=== PATIENT | female | born 2000 | race Caucasian/White ===

== ENCOUNTER 2019-04-26 13:53 | Outpatient (CLI) | payer MEDICAID ==
[~2019-04-26] VITALS: Ht 170.2 cm; Wt 95.9 kg
--- NOTE | 2019-04-26 13:30 | NUR ---
LAYTON DOBSON presented to unit from Dr. Christensen's office, accompanied by Mom, with c/o NAUSEA,VOMITTING. LAYTON DOBSON weighed, gowned, voided, and to bed. VS taken. LAYTON DOBSON oriented to bed controls, call light, TV, heat, and A/C controls.
[2019-04-26 13:45] VITALS: BP 126/86
--- NOTE | 2019-04-26 13:58 | NUR ---
20g Saline lock inserted in patient's left hand x 1 attempt. Unable to draw labs at this time, will notify lab to draw.
--- OUTSIDE RECORDS SUMMARY | 2019-04-26 14:16 | XMS REPORT ---
Author Author JAIME RUTHERFORD Organization [facility] [address] [address] [facility] Address [address] [place] [address] Care Team Providers Care Electric Truck Operator Name Role Phone JAIME RUTHERFORD Unavailable PROBLEMS Unknown Problems ALLERGIES No Information ENCOUNTERS Encounter Location Date Diagnosis [facility] [address] [facility] [id number] [id number] Apr, [id number] [id number] Apr, Rash R21 and Chigger bites B88.0 IMMUNIZATIONS No Known Immunizations SOCIAL HISTORY Never Assessed REASON FOR VISIT PE PLAN OF CARE VITAL SIGNS MEDICATIONS Unknown Medications RESULTS No Results PROCEDURES No Known procedures INSTRUCTIONS MEDICATIONS ADMINISTERED No Known Medications MEDICAL (GENERAL) HISTORY Type Description Date Surgical History tonsillectomy and adenoidectomy Surgical History BMT
--- OUTSIDE RECORDS SUMMARY | 2019-04-26 14:16 | XMS REPORT ---
Author Author JAIME RUTHERFORD Organization [facility] Address [address] [place] [address] Care Team Providers Care Lock And Dam Repairer Name Role Phone JAIME RUTHERFORD Unavailable PROBLEMS Unknown Problems ALLERGIES No Known Allergies ENCOUNTERS Encounter Location Date Diagnosis [facility] [address] [facility] [id number] [id number] Apr, [facility] [address] [facility] [id number] [id number] Apr, Rash R21 and Chigger bites B88.0 IMMUNIZATIONS No Known Immunizations SOCIAL HISTORY Never Assessed REASON FOR VISIT Rash starting 2 days ago Sera YATES PLAN OF CARE Activity Details Follow Up if not improving in clinic or with PCP Reason: VITAL SIGNS Height 67 in 2017-05-21 Weight 211.2 lbs 2017-05-21 Temperature 98.6 degrees Fahrenheit 2017-05-21 Heart Rate 82 bpm 2017-05-21 Respiratory Rate 22 2017-05-21 BMI 33.07 kg/m2 2017-05-21 Blood pressure systolic 120 mmHg 2017-05-21 Blood pressure diastolic 68 mmHg 2017-05-21 MEDICATIONS Unknown Medications RESULTS No Results PROCEDURES No Known procedures INSTRUCTIONS MEDICATIONS ADMINISTERED No Known Medications MEDICAL (GENERAL) HISTORY Type Description Date Surgical History tonsillectomy and adenoidectomy Surgical History BMT
--- OUTSIDE RECORDS SUMMARY | 2019-04-26 14:16 | XMS REPORT | Continuity of Care Document ---
Author Organization Unknown Address Unknown Allergies There is no data. Medications There is no data. Problems There is no data. Procedures There is no data. Results Test Result Range CULTURE, URINE - 03/03/19 12:09 CULTURE, URINE, ROUTINE SEE NOTE NRG CULTURE, GENITAL - 03/03/19 12:09 CULTURE, GENITAL SEE NOTE NRG GC/CHLAMYDIA (SWAB OR URINE)-RAPID - 03/03/19 19:01 CHLAMYDIA TRACHOMATIS RNA, TMA NOT DETECTED NOT DETECTED NEISSERIA GONORRHOEAE RNA, TMA NOT DETECTED NOT DETECTED COMMENT NRG HCG, QUANTITATIVE - 03/16/19 14:50 [place] [address] mIU/mL NRG HCG, QUANTITATIVE - 03/17/19 11:56 [place], [place] [address] mIU/mL NRG Encounters ACCT No. Visit Date/Time Discharge Status Pt. Type Provider Facility Loc./Unit Complaint [id number] 03/31/2019 10:00:00 03/31/2019 23:59:59 [facility] [place] [id number] 03/17/2019 09:00:00 Document Registration [id number] 03/16/2019 14:00:00 Document Registration [id number] 03/03/2019 10:40:00 Document Registration
--- NOTE | 2019-04-26 14:43 | NUR ---
LAB HERE TO DRAW BLOOD. CALLED PHARMACY ABOUT IV FLUIDS. CALLED [facility] ABOUT ULTRASOUND.
[2019-04-26] MEDS ORDERED: ONDANSETRON 4 MG/2 ML (SDV) Z0FRAN IVP PRN (14:45)
[2019-04-26 15:04] LABS: BASOPHILS % (AUTO) 0 % (0-10); EOSINOPHILS % (AUTO) 0 % (0-10); HEMATOCRIT 39 % (35-52); HEMOGLOBIN 14.1 G/DL (11.5-16.0); LYMPHOCYTES # (AUTO) 1.7 X 10^3 (1.0-4.0); LYMPHOCYTES % (AUTO) 19 % (12-44); MEAN CORPUSCULAR HEMOGLOBIN 30 PG (25-34); MEAN CORPUSCULAR HGB CONC 37 G/DL (32-36); MEAN CORPUSCULAR VOLUME 82 FL (80-99); MEAN PLATELET VOLUME 11.3 FL (7.4-10.4); MONOCYTES # (AUTO) 0.7 X 10^3 (0.0-1.0); MONOCYTES % (AUTO) 8 % (0-12); NEUTROPHILS # (AUTO) 6.6 X 10^3 (1.8-7.8); NEUTROPHILS % (AUTO) 73 % (42-75); PLATELET COUNT 182 10^3/uL (130-400)
[2019-04-26] MEDS: NS W/KCL 20 MEQ/L 1,000 ML IV SCH ×2 (15:13→22:24)
[2019-04-26] MEDS: FAMOTIDINE 20MG/2ML IV (PEPCID) IVP SCH (15:13)
--- NOTE | 2019-04-26 15:13 | NUR ---
1000 CC NS WITH 20 KCL INITIATED AFTER RECEIVING FROM PHARMACY TRA 150CC/HR/PUMP. SITE CLEAR. PEPCID 20 MG IVPB.
--- NOTE | 2019-04-26 15:20 | NUR ---
[facility] HERE TO DO HEPATIC ULTRASOUND.
[2019-04-26 15:24] LABS: ALANINE AMINOTRANSFERASE 130 U/L (0-55); ALBUMIN 3.8 GM/DL (3.2-4.5); ALKALINE PHOSPHATASE 85 U/L (40-136); BILIRUBIN,TOTAL 1.7 MG/DL (0.1-1.0); BUN/CREATININE RATIO 10; CALCIUM 9.9 MG/DL (8.5-10.1); CARBON DIOXIDE 19 MMOL/L (21-32); CHLORIDE 103 MMOL/L (98-107); CREATININE SERUM 0.61 MG/DL (0.60-1.30); GFR ESTIMATED > 60; GLUCOSE 89 MG/DL (70-105); POTASSIUM 3.1 MMOL/L (3.6-5.0); SODIUM 133 MMOL/L (135-145); TOTAL PROTEIN 7.2 GM/DL (6.4-8.2)
[2019-04-26] MEDS: METOCLOPRAMIDE INJ 10 MG/2 ML (REGLAN) IVP PRN (16:12)
--- NOTE | 2019-04-26 16:12 | NUR ---
REGLAN [address] BROWN.
--- NOTE | 2019-04-26 16:15 | Diagnostic Imaging Report ---
PROCEDURE: US Hepatic (Liver). TECHNIQUE: Multiple real-time grayscale images were obtained over the right upper quadrant in various projections. INDICATION: Elevated bilirubin. Patient is 11 weeks . FINDINGS: The liver is normal in size at 14.8 cm. No discrete liver mass is identified. Portal vein is patent and shows normal direction of flow. Gallbladder does contain a large amount of sludge. No wall thickening or biliary ductal dilatation is seen. The pancreas is obscured by bowel gas. Right kidney is unremarkable. There is no ascites. IMPRESSION: Sludge-filled gallbladder. No other significant abnormality is seen. Dictated by: Dictated on workstation # [id number]
--- NOTE | 2019-04-26 17:00 | NUR ---
SLEEPING QUIETLY. NO APPARENT DISTRESS.
[2019-04-26 17:30] VITALS: BP 126/81
--- NOTE | 2019-04-26 17:30 | NUR ---
VSS. AWAKENED WHEN ENTERED ROOM. NO VOID SINCE FIRST ARRIVED. ORDERING FOOD. STATES FEELS BETTER.
--- NOTE | 2019-04-26 18:15 | NUR ---
TOOK APPROX. HALF OF CHICKEN NOODLE SOUP. SIPPING ON ICE WATER.
--- NOTE | 2019-04-26 18:39 | NUR ---
DR. GUEVARA NOTIFIED OF LABS AND ULTRASOUND RESULTS. NO NEW ORDERS.
--- NOTE | 2019-04-26 18:45 | NUR ---
GETTING READY TO ORDER MORE FOOD. DENIES VOIDING.
[2019-04-27 00:56] VITALS: BP 120/74
[2019-04-27] MEDS: NS W/KCL 20 MEQ/L 1,000 ML IV SCH ×2 (05:00→11:35)
[2019-04-27 06:47] LABS: BUN/CREATININE RATIO 7; CARBON DIOXIDE 20 MMOL/L (21-32); CHLORIDE 105 MMOL/L (98-107); CREATININE SERUM 0.58 MG/DL (0.60-1.30); POTASSIUM 3.3 MMOL/L (3.6-5.0); SODIUM 135 MMOL/L (135-145)
[2019-04-27 06:48] LABS: ALANINE AMINOTRANSFERASE 113 U/L (0-55); ALBUMIN 3.4 GM/DL (3.2-4.5); ALKALINE PHOSPHATASE 81 U/L (40-136); BILIRUBIN,TOTAL 1.5 MG/DL (0.1-1.0); CALCIUM 8.7 MG/DL (8.5-10.1); GFR ESTIMATED > 60; GLUCOSE 77 MG/DL (70-105)
--- NOTE | 2019-04-27 08:00 | NUR ---
Dr. Cox here to see pt. No new orders rec'd at this time. planning to consult general surgery regarding gall bladder.
[2019-04-27] MEDS: METOCLOPRAMIDE INJ 10 MG/2 ML (REGLAN) IVP PRN (08:28)
--- NOTE | 2019-04-27 08:28 | NUR ---
Pt c/o nausea, reglan given per order. Pt planning to order breakfast at this time.
[2019-04-27 09:15] VITALS: BP 139/89
--- NOTE | 2019-04-27 09:15 | NUR ---
Dr. Akins made aware of consultation
--- NOTE | 2019-04-27 11:00 | NUR ---
REPORT FROM LEXX YATES.
[2019-04-27] MEDS: FAMOTIDINE 20MG/2ML IV (PEPCID) IVP SCH (11:42)
[2019-04-27 12:00] VITALS: BP 132/72
--- NOTE | 2019-04-27 12:00 | NUR ---
VSS. NO VOMITING. PT HAD C/O TENDERNESS WITH PALPATION OF RIGHT UPPER QUADRANT. PT HAS BEEN DENYING PAIN SINCE ADMISSION.
--- NOTE | 2019-04-27 12:12 | NUR ---
DR. SNOWDEN CALLED TO DISCUSS PT.
--- NOTE | 2019-04-27 14:08 | NUR ---
DR. SNOWDEN HERE TO CONSULT ON PT.
--- NOTE | 2019-04-27 15:00 | NUR ---
Dr. Cox called and updated on consult with Dr. Akins. Orders to D/C pt to home rec'd with follow up to see Dr. Christensen within the next week. Instruct pt on Low-Fat diet.
--- NOTE | 2019-04-27 15:19 | CONSULTATION REPORT ---
DATE OF SERVICE: 04/27/2019 ATTENDING PRIMARY CARE PHYSICIAN: Lori Christensen MD. HISTORY OF PRESENT ILLNESS: The patient is a 19-year-old female, G1, P0 at 11 weeks and 5 days. She was admitted due to persistent nausea and vomiting as well as dehydration. Since being admitted and started on IV fluids as well as Zofran, she has felt much better and able to tolerate liquids as well as a low fat diet without any difficulty. Upon further evaluation, an ultrasound was performed, which did show that she does have biliary sludge consistent with a chronic calculous cholecystitis. Upon further questioning, she reports that she has had similar symptoms of pain in the right upper abdominal quadrant with abdominal bloating and distention with radiation towards the back even in the past few years after eating a large meal. She does not report any issues with heartburn, reflux or any peptic ulcer disease. PAST MEDICAL HISTORY: None. PAST SURGICAL HISTORY: Tonsillectomy, bilateral tympanostomy. ALLERGIES: No known drug allergies. MEDICATIONS: None. SOCIAL HISTORY: Negative smoke, negative alcohol. FAMILY HISTORY: Noncontributory. VITAL SIGNS: Temperature 97.9, blood pressure 132/72, pulse 75, respirations 18, pulse ox 100% on room air. REVIEW OF SYSTEMS: This is a well-nourished female, currently in no acute distress. She is not experiencing any shortness of breath or difficulty breathing. No chest pain, palpitations, diaphoresis. Intermittent episodes of nausea and vomiting, which has been occurring for the past few weeks; however, was more severe recently. Since being admitted, she has done better. She does not report any diarrhea or constipation as well as no red blood per rectum or any dark tarry stools. No fever, chills; however, states that she has lost some weight since finding out she was at approximately 5 weeks' gestation. PHYSICAL EXAMINATION: CHEST: Clear. Good breath sounds bilaterally. HEART: Regular, no murmurs. EXTREMITIES: No lower extremity edema, negative Homans sign. HEENT: No scleral icterus. NECK: No cervical lymphadenopathy. ABDOMEN: Soft, nondistended. There is mild discomfort in the right upper abdominal quadrant upon deep palpation. No peritoneal signs. SKIN: Warm, dry. LABORATORY DATA: WBC 9.0, hemoglobin 14.1, hematocrit 39, platelets 182, total bilirubin 1.5, AST 70, ALT 113. ASSESSMENT AND PLAN: A 19-year-old female G1, P0 at 11 weeks 5 days gestation. She has had nausea, vomiting as well as abdominal pain and an ultrasound, which did show biliary sludge. We feel that the majority of her symptoms are related to increased estrogen and bile stasis as well as underlying biliary sludge, which has worsened during her . The gallbladder etiology was explained to the patient. It was also explained to her that we would like to wait until the early to mid second trimester before proceeding with general anesthesia as well as laparoscopic cholecystectomy. However, at the same time, not wait too long when she has a more gravid uterus, which may impede visualization. She is in understanding of this and would like to proceed with an outpatient laparoscopic cholecystectomy. We will have her follow up in the office in the next 2 weeks and for now have her proceed with a very bland diet and low fat simultaneously. We will also have her take Zofran 4 mg ODT p.r.n. if she does become nauseous. At approximately 16 weeks' gestation, we will proceed with scheduling her for a laparoscopic cholecystectomy. Job ID: [id number] DocumentID: [id number] Dictated Date: 04/27/2019 15:03:15 Checker In Date: 04/27/2019 15:19:04 Dictated By: ALESSIA SNOWDEN MD [facility]
--- NOTE | 2019-04-27 15:19 | NUR ---
Dr. Akins's office called, follow up appt made.
--- NOTE | 2019-04-27 15:41 | NUR ---
Discharge instructions explained to pt with copy provided to pt along with zofran script. Encouraged pt to fill and take zofran as prescribed. Emphasis of instruction on low-fat diet given. Pt verbalizes understanding of instruction and signs to verify. Questions answered to pt satisfaction. No further needs or concerns voiced at this time. Pt ambulates self off unit accompanied by mother, to private vehicle, all personal belongings with pt. No s/s of distress noted.
--- NOTE | 2019-04-27 18:45 | History & Physical-OB ---
OB - Chief Complaint & HPI Date/Time Date of Admission: Date of Admission: Apr 26, 2019 at 14:12 Date seen by a Provider: Apr 27, 2019 Time Seen by a Provider: 08:00 Chief Complaint/History OB-Reason for Admission/Chief: nausea, vomiting, hypokalemia Hx : 1 Hx Para: 0 Expected Date of Delivery: Nov 11, 2019 Gestational Age in Weeks: 11 Gestational Age in Days: 4 Allergies and Home Medications Allergies Coded Allergies: No Known Drug Allergies (Unverified , 04/26/19) Home Medications No Active Prescriptions or Reported Meds Patient Home Medication List Home Medication List Reviewed: Yes OB - History Hx of Present Care: Yes Ultrasounds: No ultrasounds Obstetrical Complications: Hyperemesis Obstetrical History Hx : 1 Hx Para: 0 Hx Total # of Abortions (Spona: 0 Patient Past Medical History none Social History/Family History Recent Infectious Disease Expo: No OB - Admission Exam Physical Exam Vitals: Vital Signs 04/27/19 12:00 Temp 97.9 Pulse 75 Resp 18 B/P (MAP) 132/72 (92) Pulse Ox 100 O2 Delivery Room Air HEENT: NCAT Heart: Rhythm Normal Lungs: Clear Abdomen: Other (right upper quadrant tenderness) Extremities: Normal Reflexes: Normal Labs Laboratory Tests Test 04/27/19 06:20 Range/Units Sodium Level 135 135-145 MMOL/L Potassium Level 3.3 L 3.6-5.0 MMOL/L Chloride Level 105 98-107 MMOL/L Carbon Dioxide Level 20 L 21-32 MMOL/L Anion Gap 10 5-14 MMOL/L Blood Urea Nitrogen 4 L 7-18 MG/DL Creatinine 0.58 L 0.60-1.30 MG/DL Estimat Glomerular Filtration Rate > 60 BUN/Creatinine Ratio 7 Glucose Level 77 70-105 MG/DL Calcium Level 8.7 8.5-10.1 MG/DL Corrected Calcium 9.2 8.5-10.1 MG/DL Total Bilirubin 1.5 H 0.1-1.0 MG/DL Aspartate Amino Transf (AST/SGOT) 70 H 5-34 U/L Alanine Aminotransferase (ALT/SGPT) 113 H 0-55 U/L Alkaline Phosphatase 81 40-136 U/L Total Protein 6.0 L 6.4-8.2 GM/DL Albumin 3.4 3.2-4.5 GM/DL OB - Assessment/Plan/Diagnosis Assessment Assessment: observation Admission Dx Gallbladder sludge, nausea, vomiting Admission Status: Observation Plan Other Plan at 11 weeks 5 days with gallbladder sludge, vomiting, and hypokalemia with elevated liver enzymes. Will continue fluids and electrolyte replacement. Ultrasound shows gallbladder sludge with elevated liver enzymes. Will consult surgeon. Home later today if tolerating oral food. CANDICE YOUNG MD Apr 27, 2019 18:45
[2019-04-28 06:43] LABS: HEPATITIS C ANTIBODY C Non-Reactive (Non-Reactive)
== END 2019-04-27 15:41 | disposition home or self-care (01) ==
LOC: WSo 13:53 → LDRP 13:54 → WSo 14:11 → LDRP 14:12 → WS 04-27 14:47
PROVIDERS: ADMIT Family Medicine; ATTEND Family Medicine
DX: O21.1 Hyperemesis gravidarum with metabolic disturbance (principal); O99.611 Diseases of the digestive system complicating pregnancy, first trimester; K82.8 Other specified diseases of gallbladder; Z3A.11 11 weeks gestation of pregnancy
CPT/HCPCS: 36415; 76705; 80053; 80074; 84443; 85025; 96361; 96374; 96375; 96376; 99211; G0378

== ENCOUNTER 2019-05-18 09:40 | Outpatient (RCR) | payer MEDICAID ==
[2019-06-08] MEDS ORDERED: ONDA4TAB11 PO (09:45)
[2019-06-09] MEDS ORDERED: HYDR-3812 PO (12:46)
[2019-06-29] MEDS ORDERED: CALC500T7 PO (07:57)
[2019-06-29] MEDS ORDERED: NITR-65 PO (08:47)
[2019-08-10] MEDS ORDERED: RANI-613 PO (17:20)
== END 2019-08-16 | disposition home or self-care (01) ==
LOC: CARD 09:40
PROVIDERS: ATTEND Family Medicine
DX: R00.2 Palpitations (principal)
CPT/HCPCS: 93225; 93226

== ENCOUNTER 2019-06-08 10:35 | Outpatient (CLI) | payer MEDICAID ==
[~2019-06-08] VITALS: Ht 170.2 cm; Wt 97.7 kg
[~2019-06-08 10:35] MED LIST: ONDA4TAB11 PO
[2019-06-09] MEDS ORDERED: HYDR-3812 PO (12:46)
== END 2019-06-08 10:55 | disposition home or self-care (01) ==
LOC: PREOP 10:35
PROVIDERS: ATTEND Surgery
DX: Z01.818 Encounter for other preprocedural examination (principal)

== ENCOUNTER 2019-06-09 07:53 | Day surgery (SDC) | payer MEDICAID ==
[~2019-06-09] VITALS: Ht 170.2 cm; Wt 97.7 kg
[2019-06-09] VITALS (12 sets, daily range): BP systolic 107–132; BP diastolic 59–87
--- OUTSIDE RECORDS SUMMARY | 2019-06-09 08:07 | XMS REPORT | Continuity of Care Document ---
[...] QUANTITATIVE - 03/16/19 14:50 [place] [address] mIU/mL NRG HCG, QUANTITATIVE - 03/17/19 11:56 HCG, [place] [address] mIU/mL NRG CMP - 05/10/19 10:10 GLUCOSE 82 mg/dL 65-99 UREA NITROGEN (BUN) 6 mg/dL 7-25 CREATININE 0.57 mg/dL 0.50-1.10 eGFR NON-AFR. PARAGUAYAN 133 mL/min/1.73m2 > OR=60 eGFR 155 mL/min/1.73m2 > OR=60 BUN/CREATININE RATIO 11 (calc) 6-22 SODIUM 138 mmol/L 135-146 POTASSIUM 4.3 mmol/L 3.5-5.3 CHLORIDE 105 mmol/L 98-110 CARBON DIOXIDE 27 mmol/L 20-32 CALCIUM 9.3 mg/dL 8.6-10.2 PROTEIN, TOTAL 6.5 g/dL 6.1-8.1 ALBUMIN 3.9 g/dL 3.6-5.1 GLOBULIN 2.6 g/dL (calc) 1.9-3.7 ALBUMIN/GLOBULIN RATIO 1.5 (calc) 1.0-2.5 BILIRUBIN, TOTAL 0.6 mg/dL 0.2-1.2 ALKALINE PHOSPHATASE 74 U/L 33-115 AST 34 U/L 10-30 ALT 33 U/L 6-29 PENTA SCREEN - 06/02/19 12:02 Maternal Weight 215 lbs NRG Est'd Date of Delivery 11/11/2019 NRG NAEL Determined by ULTRASOUND NRG Mother's Ethnic Origin NRG Number of Fetuses 1 NRG Insulin Depend Diabetic NO NRG Repeat Specimen NO NRG Hx Of Neural Tube Defects NO NRG Prev Down Synd NO NRG Donor Egg NO NRG Donor Age: Egg Retrieval NOT GIVEN NRG Cigarette smoker NOT GIVEN NRG INTERPRETATION: SEE NOTE NRG Risk for ONTD 1:3700 NRG Age Risk Down Syndrome 1:1175 NRG LIVIER Down Syndrome Risk <1:5000 <1:270 LIVIER Trisomy 18 Risk <1:5000 <1:100 Calc'd Gestational Age 16.9 NRG AFP, Serum 40.3 ng/mL NRG AFP MoM 1.39 NRG hCG, Serum 44.0 IU/mL NRG hCG MoM 1.85 NRG Estriol, Free 1.24 ng/mL NRG Estriol MoM 1.48 NRG Inhibin A, Dimeric 281 pg/mL NRG Inhibin A MoM 1.99 NRG h-hCG, Serum 49.8 mcg/L NRG h-hCG MoM 2.46 NRG Date of 2000 NRG Collection Date 06/02/2019 NRG Encounters ACCT No. Visit Date/Time Discharge Status Pt. Type Provider Facility Loc./Unit Complaint [id number] 06/02/2019 09:20:00 06/02/2019 23:59:59 [facility] [id number] 06/02/2019 09:20:00 Document Registration [id number] 05/10/2019 09:40:00 Document Registration [id number] 03/17/2019 09:00:00 Document Registration [id number] 03/16/2019 14:00:00 Document Registration [id number] 03/03/2019 10:40:00 Document Registration
[2019-06-09] MEDS: LACTATED RINGERS 1,000 ML IV PRN ×2 (08:35→11:03)
[2019-06-09 08:40] LABS: BASOPHILS % (AUTO) 0 % (0-10); EOSINOPHILS # (AUTO) 0.1 10^3/uL (0.0-0.3); EOSINOPHILS % (AUTO) 1 % (0-10); HEMATOCRIT 36 % (35-52); HEMOGLOBIN 12.4 G/DL (11.5-16.0); LYMPHOCYTES # (AUTO) 3.3 X 10^3 (1.0-4.0); LYMPHOCYTES % (AUTO) 29 % (12-44); MEAN CORPUSCULAR HEMOGLOBIN 31 PG (25-34); MEAN CORPUSCULAR HGB CONC 35 G/DL (32-36); MEAN CORPUSCULAR VOLUME 89 FL (80-99); MEAN PLATELET VOLUME 11.2 FL (7.4-10.4); MONOCYTES # (AUTO) 0.9 X 10^3 (0.0-1.0); MONOCYTES % (AUTO) 8 % (0-12); NEUTROPHILS % (AUTO) 62 % (42-75); PLATELET COUNT 244 10^3/uL (130-400); RED CELL DISTRIBUTION WIDTH 13.7 % (10.0-14.5); WHITE BLOOD COUNT 11.3 10^3/uL (4.3-11.0)
[2019-06-09] MEDS ORDERED: ceFAZolin INJECTION 1,000 MG in WATER (STERILE) FOR INJECTION 10 ML IV ONE (08:45)
[2019-06-09] MEDS ORDERED: BUP/EPI 0.5% 1:200,000 (MARCAINE) 10ML VIAL IJ ONE (09:44)
[2019-06-09] MEDS ORDERED: fentaNYL INJECTION 100 MCG/2 ML AMP ONE (09:54)
[2019-06-09] MEDS ORDERED: LIDOCAINE PF 2% 5 ML (XYLOCAINE) VIAL ONE (09:54)
[2019-06-09] MEDS ORDERED: proPOfol 200 MG/20 ML (DIPRIVAN) VIAL IV ONE (09:54)
[2019-06-09] MEDS ORDERED: ONDANSETRON 4 MG/2 ML (SDV) Z0FRAN ONE (09:54)
[2019-06-09] MEDS ORDERED: SUCCINYLCHOLINE INJ 100 MG/5 ML SYR ONE (09:54)
[2019-06-09] MEDS ORDERED: ROCURONIUM 10 MG/ML 5 ML SYRINGE IV ONE (09:54)
[2019-06-09] MEDS ORDERED: SEVOFLURANE (ULTANE) 15 ML INHAL SOLN ONE ×4 (09:56→11:29)
--- NOTE | 2019-06-09 10:05 | Progress Note-Pre Operative ---
Pre-Operative Progress Note H&P Reviewed The H&P was reviewed, patient examined and no changes noted. Date Seen by Provider: Jun 09, 2019 Time Seen by Provider: : Date H&P Reviewed: Jun 09, 2019 Time H&P Reviewed: :30 Pre-Operative Diagnosis: symptomatic chronic calculous cholecystitis ALESSIA SNOWDEN MD Jun 09, 2019 10:05
--- NOTE | 2019-06-09 10:08 | Discharge Inst-Surgical ---
D/C Lap Instructions-ISI New, Converted, or Re-Newed RX: RX on Chart Follow Up Appt in 2 weeks Activity as tolerated No driving for 24 hours No driving while on pain medications Incentive Spirometry use every 2 hours while awake Regular Diet Symptoms to Report: Fever over 101 degree F, Nausea/Vomiting Infection Signs and Symptoms to report: Increased redness, Foul odor of wound, Increased drainage Bathing instructions: May shower Operative Area Clean/Dry; Keep incision clean/dry If any problems/questions: Contact your physician or go to Emergency Room ALESSIA SNOWDEN MD Jun 09, 2019 10:07
[2019-06-09] MEDS ORDERED: ONDANSETRON 4 MG/2 ML (SDV) Z0FRAN IVP PRN ×2 (10:15→12:00)
[2019-06-09] MEDS ORDERED: morphine INJ 10 MG/ML 1ML (SYR OR VIAL) IVP PRN ×2 (10:15)
[2019-06-09] MEDS ORDERED: oxyCODONE/APAP 5/325MG (PERCOCET 5) TABLET PO PRN (10:15)
[2019-06-09] MEDS ORDERED: ACETAMINOPHEN 325 MG TABLET PO PRN (10:15)
[2019-06-09] MEDS ORDERED: GLYCOPYRROLATE 0.2 MG/ML (ROBINUL) 2 ML VIAL ONE (11:21)
[2019-06-09] MEDS ORDERED: NEOSTIGMINE 3 MG/3 ML VIAL ONE (11:21)
--- NOTE | 2019-06-09 11:39 | Progress Note-Post Operative ---
Post-Operative Progess Note Surgeon (s)/Drivers License Examiner (s) Surgeon ALESSIA SNOWDEN MD Drivers License Examiner: gulshan rosales UNIT CONTROL WORKER Pre-Operative Diagnosis symptomatic chronic calculous cholecystitis Post-Operative Diagnosis same Procedure & Operative Findings Date of Procedure 06/09/19 Procedure Performed/Findings laparoscopic cholecystectomy. Anesthesia Type GET Estimated Blood Loss Estimated blood loss (mL): minimal Specimens/Packing Specimens Removed gallbladder ALESSIA SNOWDEN MD Jun 09, 2019 11:39
[2019-06-09] MEDS ORDERED: HYDROmorphone 2 MG/ML VIAL (DILAUDID) ONE (11:46)
[2019-06-09] MEDS ORDERED: fentaNYL INJECTION 100 MCG/2 ML AMP IVP ONE (12:00)
[2019-06-09] MEDS ORDERED: morphine INJ 10 MG/ML 1ML (SYR OR VIAL) IVP ONE (12:00)
[2019-06-09] MEDS ORDERED: HYDROmorphone 2 MG/ML VIAL (DILAUDID) IV ONE (12:00)
[2019-06-09] MEDS ORDERED: HYDR-3812 PO (12:46)
--- NOTE | 2019-06-09 14:15 | Anesthesia-General Post-Op ---
General Patient Condition Mental Status/LOC: Same as Preop Cardiovascular: Satisfactory Nausea/Vomiting: Absent Respiratory: Satisfactory Pain: Controlled Complications: Absent Post Op Complications Complications None Follow Up Care/Instructions Patient Instructions None needed. Anesthesia/Patient Condition Patient Condition Patient is doing well, no complaints, stable vital signs, no apparent adverse anesthesia problems. No complications reported per nursing. DIANELYS RIVERA CRNA Jun 09, 2019 14:15
--- NOTE | 2019-06-09 15:02 | OPERATIVE REPORT ---
DATE OF SERVICE: 06/09/2019 ATTENDING PRIMARY CARE PHYSICIAN: Dr. Christensen. PREOPERATIVE DIAGNOSIS: Symptomatic biliary sludge. POSTOPERATIVE DIAGNOSIS: Chronic calculous cholecystitis. PROCEDURE: Laparoscopic cholecystectomy. SURGEON: Alessia Snowden MD ANESTHESIA: General endotracheal. ESTIMATED BLOOD LOSS: Minimal. FINDINGS: Distended gallbladder with multiple small gallstones at the neck of the gallbladder. Normal appearing gravid uterus. DISPOSITION: The patient tolerated the procedure well. INDICATIONS: The patient is a 19-year-old female, G1, P0 at 17 weeks and 5 days' gestation. She was initially seen in her first trimester for a right upper abdominal quadrant pain with associated nausea and vomiting. We recommended proceeding with medical management with necessary lifestyle and diet accommodation including low fat diet; however, she states that she continued to be symptomatic. We recommend waiting until the middle portion of her second trimester if she continued to be symptomatic. She reported she continues to have nausea and vomiting and will also have episodes of pain in the right upper abdominal quadrant with radiation towards the back. DESCRIPTION OF PROCEDURE: The patient was brought to the operating room, laid supine on the table. After adequate IV pain and sedative medications and general endotracheal intubation, the abdomen was prepped and draped in standard surgical fashion. A 0.5% Marcaine with epinephrine was used to anesthetize the overlying skin in the left upper abdominal quadrant and a transverse skin incision was made using a 15 blade. An 0 silk suture was applied to the medial aspect of the incision for retraction and a Veress needle was inserted with low opening pressure of 0 mmHg. The abdomen was insufflated to 15 mmHg pressure. The Veress needle was removed and a 5 mm Xcel trocar was placed followed by a 5 mm 45 degree angle laparoscope visualizing the peritoneal cavity. A 4-quadrant abdominal exploration was performed. There was a normal appearing gravid uterus. The gallbladder was distended; however, there was no gallbladder wall thickening or pericholecystic fluid. Under direct visualization, we then proceed to place a supraumbilical 10 mm port after the skin and peritoneal lining were anesthetized using 0.5% Marcaine with epinephrine and a transverse skin incision was made using a 15 blade. In a similar manner, a right upper abdominal quadrant 5 mm port was placed. The patient was then placed in reverse Trendelenburg position as well as planed right side up, left side down. The fundus of the gallbladder was retracted anteriorly and superiorly and the hepatoduodenal ligament was then opened using an electrocautery as well as blunt dissection on the hook instrument. The entire critical view of safety was identified including the triangle of Calot as well as the cystic duct and artery as the only two structures going to the gallbladder as well as the cystic plate behind the proximal gallbladder. A timeout was then taken and the cystic duct and artery were clipped proximally, distally and cut with EndoShears. The gallbladder was then dissected off the liver bed using electrocautery and hook instrument with visualization of good hemostasis. The gallbladder was then dissected off the liver bed using electrocautery on the hook instrument with visualization of good hemostasis as well as no leaking ducts of Luschka. The gallbladder was removed through the 10 mm port site using an EndoCatch bag. The 10 mm port site fascia and peritoneum were then closed under direct visualization using Adebayo-Shawanda device and 0 Vicryl suture. The abdomen was desufflated and remaining ports were removed. All skin incisions were then closed using 4-0 Monocryl running subcuticular sutures. Wounds were then cleaned and covered over with Dermabond. The patient tolerated the procedure well. We will start IV and oral pain medication as well as a clear liquid diet. Once she is tolerating clears, has good pain control with oral pain medications, ambulating well, we will discharge her home. Her only restriction is no heavy lifting or exertion throughout the remainder of her ; however, normal activities of daily living is still encouraged. Job ID: [id number] DocumentID: [id number] Dictated Date: 06/09/2019 11:40:49 Rubber Mixer Date: 06/09/2019 15:01:40 Dictated By: ALESSIA SNOWDEN MD
== END 2019-06-09 14:20 | disposition home or self-care (01) ==
LOC: SDC 07:53
PROVIDERS: ATTEND Surgery
DX: O99.612 Diseases of the digestive system complicating pregnancy, second trimester (principal); K80.10 Calculus of gallbladder with chronic cholecystitis without obstruction; G43.909 Migraine, unspecified, not intractable, without status migrainosus; O99.342 Other mental disorders complicating pregnancy, second trimester; F41.9 Anxiety disorder, unspecified; K21.9 Gastro-esophageal reflux disease without esophagitis; Z79.899 Other long term (current) drug therapy; Z3A.17 17 weeks gestation of pregnancy
CPT/HCPCS: 36415; 85025; 87081; 94664

== ENCOUNTER 2019-06-29 07:23 | Outpatient (CLI) | payer MEDICAID ==
[~2019-06-29] VITALS: Ht 170.2 cm; Wt 98.2 kg
[~2019-06-29 07:23] MED LIST changes: +HYDR-3812 PO
--- NOTE | 2019-06-29 07:30 | NUR ---
Arrived to unit via ambulation from ED for c/o falling. Wt obtained and to room 315. Urine sample obtained and to bed. oriented to room, plan of care and call light/bed controls. Accompanied by .
[2019-06-29 07:44] VITALS: BP 120/69
[2019-06-29] MEDS ORDERED: CALC500T7 PO (07:57)
--- NOTE | 2019-06-29 08:15 | NUR ---
ice water to bedside for pt
[2019-06-29 08:21] LABS: BILIRUBIN,URINE NEGATIVE (NEGATIVE); CLARITY,URINE CLEAR; COLOR,URINE YELLOW; GLUCOSE, URINE (UA) NEGATIVE (NEGATIVE); KETONES,URINE NEGATIVE (NEGATIVE); LEUKOCYTE ESTERASE ,URINE 1+ (NEGATIVE); NITRITE,URINE NEGATIVE (NEGATIVE); PH,URINE 6 (5-9); PROTEIN,URINE NEGATIVE (NEGATIVE); UROBILINOGEN,URINE NORMAL (NORMAL)
--- NOTE | 2019-06-29 08:21 | NUR ---
Dr Delacruz notified of pt arrival, gestation, c/o, assessment, urinary symptoms, no movement since falling, abd tenderness with doppler of heart tones, heart tones 150, pt c/o cramping after falling constant in nature, no vag leaking or bleeding.
--- NOTE | 2019-06-29 08:24 | NUR ---
plan of care reviewed with pt and s.o. present at bedside.
[2019-06-29 08:29] LABS: BACTERIA,URINE MODERATE /HPF
[2019-06-29] MEDS ORDERED: NITR-65 PO (08:47)
--- NOTE | 2019-06-29 08:47 | NUR ---
Plan of care reviewed with pt and s.o. regarding new medication to treat UTI and increase in hydration. Questions answered. pt to follow up with Dr Christensen tomorrow in clinic as scheduled. prescription called to [facility] in [place] per pt request
--- NOTE | 2019-06-29 08:55 | NUR ---
Discharge instructions explained, signed and copy to patient. Pt denied questions at this time. Ambulates self off unit to private vehicle with belongings in hand. Accompanied by s.o.
== END 2019-06-29 08:55 | disposition home or self-care (01) ==
LOC: WSo 07:23 → LDRP 07:24 → WSo 08:55
PROVIDERS: ATTEND Family Medicine
DX: Z91.81 History of falling (principal); Z3A.20 20 weeks gestation of pregnancy
CPT/HCPCS: 81000; 87088; 99213

== ENCOUNTER 2019-08-10 15:48 | Outpatient (CLI) | payer MEDICAID ==
[~2019-08-10] VITALS: Ht 167.7 cm; Wt 100.5 kg
[~2019-08-10 15:48] MED LIST changes: +CALC500T7 PO; +NITR-65 PO
--- NOTE | 2019-08-10 15:55 | NUR ---
Arrived to unit ambulates self accompanied by mother with c/o "no movement for 2 days." Wt obtained and to room 315. Gowned and urine sample obtained. To bed and monitors applied. plan of care reviewed with pt and mother
[2019-08-10 16:20] VITALS: BP 120/59
[2019-08-10] MEDS ORDERED: ACETAMINOPHEN 500 MG TAB (TYLENOL) ONE (16:57)
--- NOTE | 2019-08-10 17:01 | NUR ---
Dr Delacruz called and notified of pt arrival, gestation, 1, c/o, assessment, urine dipstick, fhr pattern baseline of 135 with accels and moderate variability, no contractions. New orders received.
--- NOTE | 2019-08-10 17:08 | NUR ---
RN to pt bedside. plan of care reviewed with pt. and questions answered. pt informed rn that she is not feeling baby move 16Xin 24 hours. rn reassured pt regarding status at this time with 2 noted kicks in 20min and HR normal. discussed with pt if not feeling reassured to call physician and discuss in more depth. pt verbalized understanding.
[2019-08-10] MEDS ORDERED: ACETAMINOPHEN 500 MG TAB (TYLENOL) PO ONE (17:15)
[2019-08-10] MEDS ORDERED: RANI-613 PO (17:20)
--- NOTE | 2019-08-10 17:30 | NUR ---
Discharge instructions explained, signed and copy to pt. pt verbalized understanding of instructions and denied questions. Ambulates self off unit accompanied by mother. To private vehicle with belongings in hand.
--- NOTE | 2019-08-11 07:48 | Physician Query-Final Dx ---
Clinic Account Progress/Dx Physician Query: Please give diagnosis Please remember to include weeks gestation Date of Service Aug 10, 2019 at 15:48 KHALIF ZHENG Aug 11, 2019 07:48
== END 2019-08-10 17:30 | disposition home or self-care (01) ==
LOC: LDRP 15:48 → WSo 15:48
PROVIDERS: ATTEND Family Medicine
DX: O36.8190 Decreased fetal movements, unspecified trimester, not applicable or unspecified (principal); Z3A.00 Weeks of gestation of pregnancy not specified
CPT/HCPCS: 99213

== ENCOUNTER 2019-10-12 15:30 | Outpatient (CLI) | payer MEDICAID ==
[~2019-10-12] VITALS: Ht 170.2 cm; Wt 106.6 kg
--- NOTE | 2019-10-12 15:20 | NUR ---
Arrived to unit ambulates self accompanied by mother with c/o "leaking fluid since 1310 today." denies any leaking since in bed states "just feel wet". assessment done. vss. oriented to room, call light and surroundings. bed controls explained, offered water pt declined
[~2019-10-12 15:30] MED LIST changes: +RANI-613 PO
[2019-10-12 15:43] VITALS: BP 128/77
[2019-10-12] MEDS ORDERED: PREN-37 PO (15:48)
[2019-10-12] MEDS ORDERED: AMOX250C PO (15:48)
--- NOTE | 2019-10-12 16:11 | NUR ---
Dr Cox notified of pt arrival, gestation, c/o , assessment, nitrazine negative. new orders received for discharge
--- NOTE | 2019-10-12 16:25 | NUR ---
plan of care reviewed with pt. monitors off and pt up to get dressed.
--- NOTE | 2019-10-12 16:35 | NUR ---
Discharge instructions explained, signed and copy to patient. pt verbalized understanding of instructions. Ambulates off unit accompanied by mother to private vehicle with belongings in hand.
--- NOTE | 2019-10-13 08:19 | Physician Query-Final Dx ---
Clinic Account Progress/Dx Physician Query: Please give diagnosis Please give # weeks gestation Date of Service Oct 12, 2019 at 15:30 KHALIF ZHENG Oct 13, 2019 08:19 POS
== END 2019-10-12 16:35 | disposition home or self-care (01) ==
LOC: WSo 15:30 → LDRP 15:30 → WSo 16:35
PROVIDERS: ATTEND Family Medicine
DX: O42.913 Preterm premature rupture of membranes, unspecified as to length of time between rupture and onset of labor, third trimester (principal); Z3A.35 35 weeks gestation of pregnancy
CPT/HCPCS: 99213

== ENCOUNTER 2019-11-08 00:49 | Outpatient (CLI) | payer MEDICAID ==
[~2019-11-08] VITALS: Ht 170 cm; Wt 111.2 kg
[~2019-11-08 00:49] MED LIST changes: +AMOX250C PO; +PREN-37 PO
--- NOTE | 2019-11-08 00:55 | NUR ---
LAYTON DOBSON presented to unit via from ED, accompanied by MOTHER, with c/o CONTRACTIONS,PRESSURE 39 4/7 . LAYTON DOBSON weighed, gowned, voided, and to bed. EFHM and TOCO applied, VS taken. LAYTON DOBSON oriented to bed controls, call light, TV, heat, and A/C controls.
[2019-11-08 01:26] VITALS: BP 124/80
[2019-11-08 01:26] LABS: BILIRUBIN,URINE NEGATIVE (NEGATIVE); CLARITY,URINE CLEAR; COLOR,URINE YELLOW; GLUCOSE, URINE (UA) NEGATIVE (NEGATIVE); KETONES,URINE NEGATIVE (NEGATIVE); LEUKOCYTE ESTERASE ,URINE NEGATIVE (NEGATIVE); NITRITE,URINE NEGATIVE (NEGATIVE); PROTEIN,URINE NEGATIVE (NEGATIVE)
[2019-11-08 01:34] LABS: BACTERIA,URINE NEGATIVE /HPF
[2019-11-08 02:04] VITALS: BP 124/80
--- NOTE | 2019-11-08 02:10 | NUR ---
sve performed. no cervical change noted.
--- NOTE | 2019-11-08 02:13 | NUR ---
notified of pt's arrival, ctx pattern, sve, u'a results. order to discharge home received.
--- NOTE | 2019-11-08 02:30 | NUR ---
Discharge instructions verbalized. labor precautions given. pt verbalized understanding. pt will follow up in office on Thursday
--- NOTE | 2019-11-09 12:02 | Physician Query-Final Dx ---
Clinic Account Progress/Dx Physician Query: Please give diagnosis Please include # weeks gestation Date of Service Nov 08, 2019 at 00:49 KHALIF ZHENG Nov 09, 2019 12:02
== END 2019-11-08 02:30 | disposition home or self-care (01) ==
LOC: WSo 00:49 → LDRP 00:51 → WSo 02:30
PROVIDERS: ATTEND Family Medicine
DX: O62.9 Abnormality of forces of labor, unspecified (principal); Z3A.39 39 weeks gestation of pregnancy
CPT/HCPCS: 81000; 99213

== ENCOUNTER 2019-11-08 16:54 | Outpatient (CLI) | payer MEDICAID ==
--- NOTE | 2019-11-08 17:02 | NUR ---
LAYTON DOBSON presented to unit via W/C from ED, accompanied by MOTHER, with c/o CONTRACTIONS. LAYTON DOBSON weighed, gowned, voided, and to bed. EFHM and TOCO applied, VS taken. LAYTON DOBSON oriented to bed controls, call light, TV, heat, and A/C controls.
[2019-11-08 18:06] VITALS: BP 129/73
--- NOTE | 2019-11-08 18:27 | NUR ---
DR. YOUNG CALLED AND NOTIFIED OF PT'S ARRIVAL, C/O OF CTXS, SVE, REVIEW OF STRIP, SVE #2. DR. YOUNG WOULD LIKE TO NOTIFY DR. GUNTER PT IS 39.[address] GUNTER'S PT BUT SHE IS OK SENDING HER HOME.
--- NOTE | 2019-11-08 18:29 | NUR ---
DR. GUNTER CALLED AND NOTIFIED OF PT'S ARRIVAL, JUST SPOKE WITH DR. YOUNG, C/O OF CTXS, SVE, REVIEW OF STRIP, SVE #2 (NO CHANGE NOTED). DR. GUNTER WOULD LIKE TO DC'D PT HOME. DR. YOUNG NOTIFIED AND WILL PROCEED WITH DISCHARGE.
--- NOTE | 2019-11-08 18:48 | NUR ---
DISCHARGE PAPERS PROVIDED AND REVIEWED WITH PT, PT VERBALIZES UNDERSTANDING. QUESTIONS ANSWERED. PT'S MOTHER AT THE BEDSIDE. PAPER SIGNED.
--- NOTE | 2019-11-08 18:50 | NUR ---
PT DISCHARGED FROM -319 TO PERSONAL AUT[facility] VIA W/C IN STABLE CONDITION ACC BY MOTHER.
--- NOTE | 2019-11-09 12:05 | Physician Query-Final Dx ---
KHALIF ZHENG 11/09/19 1205: Clinic Account Progress/Dx Physician Query: Please give diagnosis Please include # weeks gestation Date of Service Nov 08, 2019 at 16:54 CANDICE YOUNG MD 11/17/19 2243: Clinic Account Progress/Dx DIAGNOSIS: Diagnosis Contractions at 39 weeks and 4/7 wga. KHALIF ZHENG Nov 09, 2019 12:05 CANDICE YOUNG MD Nov 17, 2019 22:43
== END 2019-11-08 18:50 | disposition home or self-care (01) ==
LOC: WSo 16:54 → LDRP 16:54 → WSo 18:50
PROVIDERS: ATTEND Family Medicine
DX: O62.9 Abnormality of forces of labor, unspecified (principal); Z3A.39 39 weeks gestation of pregnancy
CPT/HCPCS: 99213

== ENCOUNTER 2019-11-09 23:35 | Inpatient (IN) | payer MEDICAID ==
[2019-11-09 23:48] VITALS: BP 0/0
[2019-11-10] VITALS (57 sets, daily range): BP systolic 106–141; BP diastolic 57–101
[2019-11-10 01:05] LABS: BILIRUBIN,URINE NEGATIVE (NEGATIVE); CLARITY,URINE CLEAR; COLOR,URINE YELLOW; GLUCOSE, URINE (UA) NEGATIVE (NEGATIVE); KETONES,URINE NEGATIVE (NEGATIVE); LEUKOCYTE ESTERASE ,URINE NEGATIVE (NEGATIVE); NITRITE,URINE NEGATIVE (NEGATIVE); PROTEIN,URINE NEGATIVE (NEGATIVE)
[2019-11-10] MEDS ORDERED: LACTATED RINGERS 1,000 ML IV ONE (01:11)
[2019-11-10 01:13] LABS: BACTERIA,URINE NEGATIVE /HPF
[2019-11-10] MEDS: LACTATED RINGERS 1,000 ML IV SCH ×2 (01:30→02:30)
[2019-11-10] MEDS: fentaNYL INJECTION 100 MCG/2 ML AMP IVP ONE ×2 (01:49→03:17)
[2019-11-10] MEDS ORDERED: LACTATED RINGERS 1,000 ML IV SCH ×2 (06:28→08:59)
[2019-11-10] MEDS ORDERED: MISOPROSTOL 100 MCG (CYTOTEC) TAB PV PRN (06:30)
[2019-11-10 06:39] LABS: BASOPHILS % (AUTO) 0 % (0-10); EOSINOPHILS # (AUTO) 0.1 10^3/uL (0.0-0.3); EOSINOPHILS % (AUTO) 0 % (0-10); HEMATOCRIT 37 % (35-52); HEMOGLOBIN 12.2 G/DL (11.5-16.0); LYMPHOCYTES # (AUTO) 2.6 X 10^3 (1.0-4.0); LYMPHOCYTES % (AUTO) 17 % (12-44); MEAN CORPUSCULAR HEMOGLOBIN 29 PG (25-34); MEAN CORPUSCULAR HGB CONC 33 G/DL (32-36); MEAN CORPUSCULAR VOLUME 88 FL (80-99); MEAN PLATELET VOLUME 11.2 FL (7.4-10.4); MONOCYTES # (AUTO) 1.1 X 10^3 (0.0-1.0); MONOCYTES % (AUTO) 7 % (0-12); NEUTROPHILS # (AUTO) 11.9 X 10^3 (1.8-7.8); NEUTROPHILS % (AUTO) 76 % (42-75); PLATELET COUNT 280 10^3/uL (130-400); RED CELL DISTRIBUTION WIDTH 13.1 % (10.0-14.5); WHITE BLOOD COUNT 15.7 10^3/uL (4.3-11.0)
[2019-11-10 06:59] LABS: BAND NEUTROPHILS 3 %; BASOPHILS % (MANUAL) 0 %; EOSINOPHILS % (MANUAL) 1 %; LYMPHOCYTES % (MANUAL) 16 %; METAMYELOCYTES % 1 %; MONOCYTES % (MANUAL) 8 %; NEUTROPHILS % (MANUAL) 71 %; RBC MORPH NORMAL
[2019-11-10] MEDS ORDERED: SUFENTA 0.6MCG/ML BUPIVA 0.125 100 ML ONE (07:26)
[2019-11-10] MEDS: D5 LR IV SOLUTION 1,000 ML IV SCH ×2 (08:15→15:20)
--- NOTE | 2019-11-10 08:21 | History & Physical-OB ---
OB - Chief Complaint & HPI Date/Time Date of Admission: Date of Admission: Nov 10, 2019 at 06:18 Date seen by a Provider: Nov 10, 2019 Time Seen by a Provider: 08:17 Chief Complaint/History OB-Reason for Admission/Chief: Onset of Labor Hx : 1 Hx Para: 0 Expected Date of Delivery: Nov 11, 2019 Gestational Age in Weeks: 39 Gestational Age in Days: 6 History of Labs A+, antibody neg, RI. HIV/HepB/RPR NR. GC/chlamydia neg. 1 hour glucola elevated, 3 hour normal. GBS neg. Allergies and Home Medications Allergies Coded Allergies: Iodine and Iodide Containing Produc (Verified Allergy, Mild, ITCHING/HIVES, 06/08/19) Home Medications Ondansetron 4 Mg Tab.rapdis, 4 MG PO Q4H PRN for NAUSEA/VOMITING, (Reported) Vit/Iron Fumarate/FA 1 Each Tablet, 1 EACH PO DAILY, (Reported) Ranitidine HCl 150 Mg Tablet, 150 MG PO DAILY, (Reported) Patient Home Medication List Home Medication List Reviewed: Yes OB - History Hx of Present Care: Yes Ultrasounds: Normal mid trimester US Obstetrical Complications: Hyperemesis Medical Complications: Gastrointestinal (cholecystectomy done early in , GERD), Psychiatric (depression/anxiety) Obstetrical History Hx : 1 Hx Para: 0 Hx # Term Pregnancies: 0 Hx # Pregnancies: 0 Number of Living Children: 0 Hx Total # of Abortions (Spona: 0 Delivery History Adverse Rxn to Tranfusion: No Patient Past Medical History PMHx: Mood disorder SurgHx: cholecystectomy Social History/Family History HIV/AIDS: No Recent Infectious Disease Expo: No Sexually Transmitted Disease: No Alcohol Use: Denies Use Recreational Drug Use: No Smoking Cessation: Never smoker 2nd Hand Smoke Exposure: No Immunizations Hepatitis A: Yes Hepatitis B: Yes Tetanus Booster (TDap): Less than 5yrs Date of Influenza Vaccine: Sep 26, 2019 Rubella: immune RPR/VDRL: Negative GBS Status: Negative HBsAG: Negative OB - Admission Exam Physical Exam Vitals: Vital Signs 11/09/19 11/10/19 23:48 06:00 Temp 36.7 Pulse 88 Resp 18 B/P (MAP) 128/86 (100) Pulse Ox 0 O2 Delivery Room Air HEENT: NCAT Abdomen: Non tender Extremities: Edema Cervical Dilatation: 4cm Effacement: 100% Station: 0 Membranes: Intact Heart Rate: 130's Accelerations: Accelerations Present Decelerations: No Decelerations Short Term Variability: Present Reporting Analyst Variability: Average (6-25) Contractions on Admission: < 5 Minutes Apart Intensity: Firm Labs Laboratory Tests Test 11/09/19 23:50 11/10/19 01:25 Range/Units Urine Color YELLOW Urine Clarity CLEAR Urine pH 7.0 5-9 Urine Specific [place] 1.020 1.016-1.022 Urine Protein NEGATIVE NEGATIVE Urine Glucose (UA) NEGATIVE NEGATIVE Urine Ketones NEGATIVE NEGATIVE Urine Nitrite NEGATIVE NEGATIVE Urine Bilirubin NEGATIVE NEGATIVE Urine Urobilinogen 1.0 < = 1.0 MG/DL Urine Leukocyte Esterase NEGATIVE NEGATIVE Urine RBC (Auto) 1+ H NEGATIVE Urine RBC 5-10 H /HPF Urine WBC NONE /HPF Urine Squamous Epithelial Cells 2-5 /HPF Urine Crystals NONE /LPF Urine Bacteria NEGATIVE /HPF Urine Casts NONE /LPF Urine Mucus SMALL H /LPF Urine Culture Indicated NO White Blood Count 15.7 H 4.3-11.0 10^3/uL Red Blood Count 4.17 L 4.35-5.85 10^6/uL Hemoglobin 12.2 11.5-16.0 G/DL Hematocrit 37 35-52 % Mean Corpuscular Volume 88 80-99 FL Mean Corpuscular Hemoglobin 29 25-34 PG Mean Corpuscular Hemoglobin Concent 33 32-36 G/DL Red Cell Distribution Width 13.1 10.0-14.5 % Platelet Count 280 130-400 10^3/uL Mean Platelet Volume 11.2 H 7.4-10.4 FL Neutrophils (%) (Auto) 76 H 42-75 % Lymphocytes (%) (Auto) 17 12-44 % Monocytes (%) (Auto) 7 0-12 % Eosinophils (%) (Auto) 0 0-10 % Basophils (%) (Auto) 0 0-10 % Neutrophils # (Auto) 11.9 H 1.8-7.8 X 10^3 Lymphocytes # (Auto) 2.6 1.0-4.0 X 10^3 Monocytes # (Auto) 1.1 H 0.0-1.0 X 10^3 Eosinophils # (Auto) 0.1 0.0-0.3 10^3/uL Basophils # (Auto) 0.0 0.0-0.1 10^3/uL Neutrophils % (Manual) 71 % Lymphocytes % (Manual) 16 % Monocytes % (Manual) 8 % Eosinophils % (Manual) 1 % Basophils % (Manual) 0 % Metamyelocytes % 1 % Band Neutrophils 3 % Blood Morphology Comment NORMAL OB - Assessment/Plan/Diagnosis Assessment Assessment: active labor Admission Dx Active labor at 39 weeks gestation GBS negative Blood type A+ Rubella immune Admission Status: Inpatient Order (span 2 midnights) Reason for Inpatient Admission: Labor, delivery and course Plan Plan: Other (augment with AROM/pitocin as needed when epidural in place) DARLENE GUNTER MD Nov 10, 2019 08:21
[2019-11-10] MEDS ORDERED: BUPIVACAINE 0.25% 30 ML (SENSORCAINE) VIAL ONE (08:28)
[2019-11-10] MEDS ORDERED: fentaNYL INJECTION 100 MCG/2 ML AMP ONE (08:28)
[2019-11-10] MEDS: OXYTOCIN/NORMAL SALINE 500 ML IV SCH ×2 (08:34→17:52)
[2019-11-10] MEDS ORDERED: LIDOCAINE PF 2% 5 ML (XYLOCAINE) VIAL ONE (08:57)
[2019-11-10] MEDS ORDERED: diphenhydrAMINE 50 MG/ML INJ (BENADRYL) IV PRN (09:00)
[2019-11-10] MEDS ORDERED: EPIDURAL (SUFENTA 0.6MCG/ML BUPIVA 0.125%) 100 ML BAG EPI PRN (09:00)
[2019-11-10] MEDS ORDERED: ONDANSETRON 4 MG/2 ML (SDV) Z0FRAN IV PRN (09:00)
[2019-11-10] MEDS ORDERED: NALOXONE 0.4 MG/ML 1 ML (NARCAN) VIAL IV PRN (09:00)
[2019-11-10] MEDS ORDERED: ONDANSETRON 4 MG/2 ML (SDV) Z0FRAN ONE (09:15)
[2019-11-10] MEDS ORDERED: CATHETER FLUSH 10 ML SYR IV SCH ×2 (14:00→22:00)
[2019-11-10] MEDS ORDERED: MINERAL OIL CONCENTRATE 99.9% 15 ML UDC ONE (16:50)
[2019-11-10] MEDS ORDERED: MISOPROSTOL 200 MCG (CYTOTEC) TABLET ONE (17:13)
[2019-11-10] MEDS ORDERED: METHYLERGONOVINE 0.2 MG/ML (METHERGINE) AMP ONE (17:25)
[2019-11-10] MEDS ORDERED: IBUPROFEN 600 MG (MOTRIN) TAB PO ONE (17:43)
--- NOTE | 2019-11-10 17:50 | OB Labor & Delivery Record ---
Vag Delivery Note Vag Delivery Note Date of Delivery: 11/10/19 Preoperative Diagnosis: Mabel navarrete (19 /Para 1 / 0,Gestational Age (wks)39with 6days Postoperative Diagnosis: Same Surgeon: DARLENE GUNTER Anesthesia: Epidural Delivery Type: Spontaneous vaginal delivery Findings: Viable male infant, apgars 8/9, weight 3400 grams Lacerations: right periurethral abrasion, left vaginal wall abrasion, first degree perineal laceration Intact placenta with 3 vessel cord. No nuchal cord, body cord x3, no shoulder dystocia Cytotec 800 mcg placed for hemorrhage prophylaxis Estimated Blood Loss: 450 ml Complications: None Condition: Stable Description of Procedure: The patient is a 19 year old female who presented in active labor. She was admitted and informed consent was obtained. Her labor course was remarkable for augmentation with AROM and pitocin. She progressed to complete dilatation and began to push. She was then set up for delivery. The infant's head was delivered atraumatically in the BETHANY position. The shoulders and remainder of the 's body were then delivered without difficulty. Upon delivery, the infant cried and was placed on maternal abdomen. The cord was doubly clamped and cut and the was handed off to the pediatric staff. An intact placenta with 3-vessel cord delivered via Sruthi and there was found to be moderate bleeding.~ Vigorous fundal massage was performed and the fundus was found to be moderately firm so rectal cytotec was given with improvement, but incomplete response so IM methergine was given with resolution of bleeding. IV oxytocin was given. Examination of the vagina and perineum revealed a first degree perineal laceration repaired in the usual fashion with 3-0 vicryl suture. Following the repair, sponge, instrument and needle counts were correct. Mom and baby were both in stable condition in the labor suite. Vitals - Labs Vital Signs - I&O Vital Signs Date Time Temp Pulse Resp B/P (MAP) Pulse Ox O2 Delivery O2 Flow Rate FiO2 11/10/19 13:35 75 18 111/67 (82) Room Air 11/10/19 13:20 73 18 119/66 (83) Room Air 11/10/19 13:05 72 18 114/61 (78) Room Air 11/10/19 12:50 81 18 118/68 (85) Room Air 11/10/19 12:35 77 18 120/77 (91) 99 Room Air 11/10/19 12:18 75 18 113/64 (80) 98 Room Air 11/10/19 12:05 72 18 112/67 (82) 98 Room Air 11/10/19 11:45 75 18 112/64 (80) 98 Room Air 11/10/19 11:32 78 18 113/67 (82) 98 Room Air 11/10/19 11:15 75 18 114/66 (82) 99 Room Air 11/10/19 11:10 85 18 115/67 (83) 99 Room Air 11/10/19 11:00 67 18 111/59 (76) 97 Room Air 11/10/19 10:45 71 16 111/57 (75) 97 Room Air 11/10/19 10:30 64 16 119/66 (83) 96 Room Air 11/10/19 10:15 81 16 112/67 (82) 96 Room Air 11/10/19 10:10 84 16 106/59 (75) 99 Room Air 11/10/19 10:05 76 16 106/62 (77) 98 Room Air 11/10/19 10:00 79 16 107/65 (79) 98 Room Air 11/10/19 09:55 75 16 110/67 (81) 98 Room Air 11/10/19 09:50 83 16 114/71 (85) 98 Room Air 11/10/19 09:45 81 18 117/75 (89) 98 Room Air 11/10/19 09:40 81 16 113/73 (86) 98 Room Air 11/10/19 09:35 91 18 116/71 (86) 98 Room Air 11/10/19 09:30 87 18 120/67 (84) 98 Room Air 11/10/19 09:20 97 16 126/68 (87) 98 Room Air 11/10/19 09:15 100 16 118/67 (84) 99 Room Air 11/10/19 09:10 104 16 116/61 (79) 99 Room Air 11/10/19 09:05 105 16 120/61 (80) 98 Room Air 11/10/19 09:00 100 18 128/65 (86) 98 Room Air 11/10/19 08:55 96 18 125/61 (82) 98 Room Air 11/10/19 08:50 100 18 127/75 (92) 97 Room Air 11/10/19 08:40 105 18 138/82 (100) 97 Room Air 11/10/19 08:35 100 18 127/86 (100) Room Air 11/10/19 08:32 36.3 103 18 137/101 (113) Room Air 11/10/19 06:00 36.7 88 18 128/86 (100) Room Air 11/10/19 01:00 36.8 90 18 132/81 (98) Room Air 11/09/19 23:48 37.0 0 0 0 Room Air I & O 11/10/19 07:00 Intake Total 1000 ml Balance 1000 ml Labs Laboratory Tests 11/09/19 23:50: Urine Color YELLOW, Urine Clarity CLEAR, Urine pH 7.0, Urine Specific [place] 1.020, Urine Protein NEGATIVE, Urine Glucose (UA) NEGATIVE, Urine Ketones NEGATIVE, Urine Nitrite NEGATIVE, Urine Bilirubin NEGATIVE, Urine Urobilinogen 1.0, Urine Leukocyte Esterase NEGATIVE, Urine RBC (Auto) 1+H, Urine RBC 5-10H, Urine WBC NONE, Urine Squamous Epithelial Cells 2-5, Urine Crystals NONE, Urine Bacteria NEGATIVE, Urine Casts NONE, Urine Mucus SMALLH, Urine Culture Indicated NO 11/10/19 01:25: White Blood Count 15.7H, Red Blood Count 4.17L, Hemoglobin 12.2, Hematocrit 37, Mean Corpuscular Volume 88, Mean Corpuscular Hemoglobin 29, Mean Corpuscular Hemoglobin Concent 33, Red Cell Distribution Width 13.1, Platelet Count 280, Mean Platelet Volume 11.2H, Neutrophils (%) (Auto) 76H, Lymphocytes (%) (Auto) 17, Monocytes (%) (Auto) 7, Eosinophils (%) (Auto) 0, Basophils (%) (Auto) 0, Neutrophils # (Auto) 11.9H, Lymphocytes # (Auto) 2.6, Monocytes # (Auto) 1.1H, Eosinophils # (Auto) 0.1, Basophils # (Auto) 0.0, Neutrophils % (Manual) 71, Lymphocytes % (Manual) 16, Monocytes % (Manual) 8, Eosinophils % (Manual) 1, Basophils % (Manual) 0, Metamyelocytes % 1, Band Neutrophils 3, Blood Morphology Comment NORMAL DARLENE GUNTER MD Nov 10, 2019 17:50
[2019-11-10] MEDS ORDERED: BENZOCAINE/MENTHOL (DERMOPLAST) 56 ML CAN TP PRN (18:00)
[2019-11-10] MEDS ORDERED: WITCH HAZEL(TUCKS) 40 EA JAR TOP PRN (18:00)
[2019-11-10] MEDS ORDERED: OXYTOCIN/NORMAL SALINE 500 ML IV SCH (18:00)
[2019-11-10] MEDS ORDERED: MISOPROSTOL 200 MCG (CYTOTEC) TABLET PR NR (18:00)
[2019-11-10] MEDS: METHYLERGONOVINE 0.2 MG/ML (METHERGINE) AMP IM SCH (22:29)
[2019-11-11 00:47] VITALS: BP 116/79
[2019-11-11] MEDS: IBUPROFEN 600 MG (MOTRIN) TAB PO SCH ×4 (00:47→18:40)
[2019-11-11] MEDS: METHYLERGONOVINE 0.2 MG/ML (METHERGINE) AMP IM SCH (02:14)
[2019-11-11] MEDS: DOCUSATE SODIUM 100 MG (COLACE) CAP PO SCH ×3 (02:15→20:20)
[2019-11-11 06:04] VITALS: BP 107/62
[2019-11-11 06:31] LABS: BASOPHILS % (AUTO) 0 % (0-10); EOSINOPHILS # (AUTO) 0.1 10^3/uL (0.0-0.3); EOSINOPHILS % (AUTO) 1 % (0-10); HEMATOCRIT 33 % (35-52); HEMOGLOBIN 11.1 G/DL (11.5-16.0); LYMPHOCYTES # (AUTO) 2.2 X 10^3 (1.0-4.0); LYMPHOCYTES % (AUTO) 17 % (12-44); MEAN CORPUSCULAR HEMOGLOBIN 30 PG (25-34); MEAN CORPUSCULAR HGB CONC 34 G/DL (32-36); MEAN CORPUSCULAR VOLUME 89 FL (80-99); MEAN PLATELET VOLUME 10.4 FL (7.4-10.4); MONOCYTES # (AUTO) 1.2 X 10^3 (0.0-1.0); MONOCYTES % (AUTO) 9 % (0-12); NEUTROPHILS % (AUTO) 74 % (42-75); PLATELET COUNT 181 10^3/uL (130-400); RED CELL DISTRIBUTION WIDTH 12.9 % (10.0-14.5); WHITE BLOOD COUNT 13.5 10^3/uL (4.3-11.0)
--- NOTE | 2019-11-11 07:00 | Anesthesia-Regional Post-Op ---
Regional Patient Condition Mental Status: Alert, Oriented x3 Circulation: Same as Pre-Op Headache: Absent Sensation: Full Recovery Motor Block: Absent Post Op Complications Complications None Follow Up Care/Instructions Patient Instructions None needed. Anesthesia/Patient Condition Patient is doing well, no complaints, stable vital signs, no apparent adverse anesthesia problems. No complications reported per nursing. ADAN WHITFIELD CRNA Nov 11, 2019 07:00
--- NOTE | 2019-11-11 07:25 | Progress Note ---
Subjective Subjective/Events-last exam Feeling tired. Bleeding slowing to less than a period. Pain controlled with medication. latching. Objective Exam Last Set of Vital Signs Vital Signs Date Time Temp Pulse Resp B/P (MAP) Pulse Ox O2 Delivery O2 Flow Rate FiO2 11/11/19 06:04 36.6 73 18 107/62 (77) 98 Room Air Capillary Refill : Less Than 3 Seconds I&O Intake and Output 11/11/19 00:00 Intake Total 4200 ml Balance 4200 ml Intake IV Total 4200 ml Daily Weight Change No General: Alert, Oriented X3 HEENT: Atraumatic Neck: Supple Heart: Regular Rate Abdomen: Normal Bowel Sounds Extremities: No Edema Neuro: Normal Gait Results/Procedures Lab Laboratory Tests 11/11/19 06:10: White Blood Count 13.5H, Red Blood Count 3.74L, Hemoglobin 11.1L, Hematocrit 33L , Mean Corpuscular Volume 89, Mean Corpuscular Hemoglobin 30, Mean Corpuscular Hemoglobin Concent 34, Red Cell Distribution Width 12.9, Platelet Count 181, Mean Platelet Volume 10.4, Neutrophils (%) (Auto) 74, Lymphocytes (%) (Auto) 17, Monocytes (%) (Auto) 9, Eosinophils (%) (Auto) 1, Basophils (%) (Auto) 0, Neutrophils # (Auto) 10.0H, Lymphocytes # (Auto) 2.2, Monocytes # (Auto) 1.2H, Eosinophils # (Auto) 0.1, Basophils # (Auto) 0.0 Assessment/Plan Assessment/Plan Admission Dx day 1. Admission Status: Inpatient Order (span 2 midnights) (1) care following vaginal delivery Assessment & Plan: Doing well. Continue current care. Hemoglobin for this morning pending. Clinical Quality Measures DVT/VTE Risk/Contraindication: Risk Factor Score Per Nursin RFS Level Per Nursing on Admit: 1=Low/No VTE PPX CANDICE YOUNG MD Nov 11, 2019 07:25
[2019-11-11 08:55] VITALS: BP 109/65
[2019-11-11] MEDS: PRENATAL VITAMIN 1 EA TAB PO SCH (08:57)
[2019-11-11 16:55] VITALS: BP 112/72
[2019-11-11 21:10] VITALS: BP 130/83
[2019-11-12] MEDS: IBUPROFEN 600 MG (MOTRIN) TAB PO SCH ×2 (00:04→06:25)
[2019-11-12 04:11] VITALS: BP 126/74
[2019-11-12 08:00] VITALS: BP 118/77
[2019-11-12] MEDS: PRENATAL VITAMIN 1 EA TAB PO SCH (08:08)
[2019-11-12] MEDS: DOCUSATE SODIUM 100 MG (COLACE) CAP PO SCH (08:09)
--- NOTE | 2019-11-12 09:38 | Discharge Summary ---
Diagnosis/Chief Complaint Date of Admission Nov 10, 2019 at 06:18 Date of Discharge 11/12/19 Admission Diagnosis Admission Diagnosis Term 39 Week gestation Discharge Diagnosis 19 yo G1 now P1 del male via . Problems/Diagnosis: (1) care following vaginal delivery Assessment & Plan: Doing well. Continue current care. Hemoglobin for this morning pending. 11/12/19: Hgb stable, breast feeding well, ready for d.c today Discharge Summary-Simple/Stand Procedures - Epidural Placement - Discharge Physical Examination Allergies: Coded Allergies: Iodine and Iodide Containing Produc (Verified Allergy, Mild, ITCHING/HIVES, 06/08/19) Vitals & I&Os Vital Sign - Last 12Hours Date Time Temp Pulse Resp B/P (MAP) Pulse Ox O2 Delivery O2 Flow Rate FiO2 11/12/19 04:11 36.6 71 18 126/74 (91) 98 Room Air General Appearance: Alert, Oriented X3, Cooperative, No Acute Distress HEENT: Mucous Memb Moist/[place] Respiratory: Clear to Auscultation, Normal Air Movement Cardiovascular: Regular Rate, No Murmurs Abdominal: Normal Bowel Sounds, Soft, No Tenderness, Other (fundus firm and at umbilicus) Extremities: No Edema, No Tenderness/Swelling Neuro: Strength at 5/5 X4 Ext, Sensation Intact Psych/Mental Status: Mental Status NL, Mood NL Hospital Course Was the Problem List Reviewed?: Yes See final discharge diagnosis. Discussion & Recommendations 19 yo delivered male at term via , Routine post care. Breast feeding infant well. Will f.u with Dr Christensen in 6 weeks. Discharge Condition at discharge stable Instructions to patient/family Please see electronic discharge instructions given to patient. Discharge Medications Reviewed and agree with Discharge Medication list on patient's Discharge Instruction sheet Clinical Quality Measures DVT/VTE Risk/Contraindication: Risk Factor Score Per Nursin RFS Level Per Nursing on Admit: 1=Low/No VTE PPX Copy Copies To 1: DARLENE CHRISTENSEN MD, HOLLY R MD Nov 12, 2019 09:38
[2019-11-12] MEDS ORDERED: DOCU100C37 PO (09:39)
[2019-11-12] MEDS ORDERED: IBUP-844 PO (09:39)
--- NOTE | 2019-11-12 09:40 | Discharge Instructions ---
Discharge Inst-[facility] Reconcile Patient Problems Problems Reviewed?: Yes Depart Medications New, Converted or Re-Newed RX: Transmitted to Pharmacy New Medications: Docusate Sodium (Docusate Sodium) 100 Mg Capsule 100 MG PO BID, #60 CAP Ibuprofen (Ibu) 600 Mg Tablet 600 MG PO Q6HR, #90 TAB Continued Medications: Vit/Iron Fumarate/FA ( Tablet) 1 Each Tablet 1 EACH PO DAILY, TAB Discontinued Medications: Ondansetron (Ondansetron Odt) 4 Mg Tab.rapdis 4 MG PO Q4H PRN for NAUSEA/VOMITING, TAB Ranitidine HCl (Zantac) 150 Mg Tablet 150 MG PO DAILY, TAB Follow Up/Instructions Goal/Follow Up: [address] Christensen Activity Activity: Activity as Tolerated Driving Instructions: You May Drive NO SMOKING: NO SMOKING Nothing Inside Vagina: No Douching, No [place], No Tampons Diet Discharge Diet: No Restrictions Symptoms to Report to : Bleeding Excessive, Fever Over 101 Degrees F, Dizziness/Fainting, Shortness of Breath For Any Problems or Questions: Contact Your Physician Copies To 1: DARLENE HCRISTENSEN MD, HOLLY R MD Nov 12, 2019 09:40
[2019-11-12 12:15] VITALS: BP 118/77
== END 2019-11-12 12:15 | disposition home or self-care (01) | DRG 807 ==
LOC: WSo 23:35 → LDRP 23:36 → WSo 11-10 06:18 → LDRP 11-10 06:18
PROVIDERS: ADMIT Family Medicine; ATTEND Family Medicine
PROC: 10E0XZZ Delivery of Products of Conception, External Approach (ICD-10-PCS; principal; 2019-11-10)
PROC: 0HQ9XZZ Repair Perineum Skin, External Approach (ICD-10-PCS; 2019-11-10)
DX: O99.62 Diseases of the digestive system complicating childbirth (principal); Z37.0 Single live birth; O99.344 Other mental disorders complicating childbirth; K21.9 Gastro-esophageal reflux disease without esophagitis; F32.9 Major depressive disorder, single episode, unspecified; F41.9 Anxiety disorder, unspecified; O70.0 First degree perineal laceration during delivery; Z3A.39 39 weeks gestation of pregnancy
CPT/HCPCS: 36415; 81000; 85007; 85025; 85027; 86850; 86900; 86901; 99212